=== PATIENT | female | born 1985 | race Caucasian/White ===

== ENCOUNTER 2016-09-09 16:26 | Inpatient (IN) ==
[2016-09-09 16:56] LABS: MANUAL DIFF NEEDED? NO
[2016-09-09 17:03] LABS: BASO% 0.3 % (0.0-0.8); EOS# 0.02 X1000 (0.0-0.7); EOS% 0.3 % (0.0-10.0); HEMATOCRIT 43.8 % (37.0-47.0); HEMOGLOBIN 14.9 g/dL (12.0-16.0); IMM GRAN# 0.02 X1000 (0.0-0.04); IMM GRAN% 0.3 % (0.0-0.5); LYMPH# 1.01 X1000 (1.2-3.4); LYMPH% 13.9 % (20.5-51.1); MCV 91.3 FL (81-99); MONO# 0.66 X1000 (0.11-0.59); MONO% 9.1 % (1.7-9.3); MPV 8.7 FL (7.4-10.4); NEUT% 76.1 % (42.2-75.2); PLT 373 X1000 (130-400)
[2016-09-09 17:14] LABS: AGAP 19; ALBUMIN 4.7 g/dL (3.5-5.0); ALKALINE PHOSPHATASE 73 U/L (32-104); BUN 14 mg/dL (8-22); CALCIUM 9.3 mg/dL (8.8-10.2); CHLORIDE 98 mmol/L (98-107); COSMO 271; GOT 27 U/L (10-30); GPT 20 U/L (10-36); SODIUM 136 mmol/L (136-145); TCO2 19 mmol/L (25-35); TOTAL PROTEIN 8.6 g/dL (6.3-8.3)
[2016-09-09 17:14] LABS: URINE MICRO REVIEW NEEDED? NO; URINE SOURCE CLEAN CATCH
[2016-09-09 17:17] LABS: BILIRUBIN URINE NEGATIVE (NEGATIVE); BLOOD URINE LARGE (NEGATIVE); COLOR YELLOW; GLUCOSE URINE NEGATIVE (NEGATIVE); LEUKOCYTES URINE LARGE (NEGATIVE); NITRITE URINE NEGATIVE (NEGATIVE); PH URINE 5.5; PROTEIN URINE 70 mg/dL (NEGATIVE); SP GRAVITY URINE 1.032; TURBIDITY URINE HAZY (CLEAR); UROBILINOGEN URINE 2 mg/dL (NORMAL)
[2016-09-09 17:19] LABS: UR EPITHELIAL CELLS <10 /HPF (<10); URINE BACTERIA 1+ /HPF; URINE CULTURE NEEDED? YES; URINE RBC TNTC /HPF (<10); URINE WBC TNTC /HPF (<10)
[2016-09-09] MEDS ORDERED: NS 1,000 ML IV ONE (18:40)
[2016-09-09] MEDS ORDERED: BENTYL IM ONE (18:41)
[2016-09-09] MEDS ORDERED: TORADOL IV ONE (18:52)
[2016-09-09] MEDS ORDERED: ZOFRAN IV ONE (18:52)
[2016-09-09 21:53] LABS: INR 0.97; PROTIME 10.2 Seconds (9.2-11.7); PTT 33.1 Seconds (22.0-36.0)
[2016-09-09] MEDS ORDERED: FLAGYL 500 MG/NS 500 MG/100 ML IVPB IV ONE (22:06)
--- NOTE | 2016-09-09 22:08 | PROVIDER DOCUMENTATION ---
This chart was entered by Aga Haynes Scribe, acting as scribe for Stefano Barr PA. HPI-Abdominal Pain/GI Problem - General Chief Complaint: Diarrhea Stated Complaint: DIARRHEA,VOMITING Time Seen by Provider: 09/09/16 17:58 Source: patient Allergies/Adverse Reactions: Patient Allergies Allergy/AdvReac Type Severity Reaction Status Date / Time No Known Allergies Allergy Verified 06/28/16 13:52 Home Medications: Home Medication List Medication Instructions Recorded Confirmed Last Taken Type Buspirone HCl 15 mg PO BID 09/09/16 09/09/16 09/09/16 History Escitalopram [Lexapro] 10 mg PO DAILY 09/09/16 09/09/16 09/09/16 History - History of Present Illness-ABD Nature of Presenting Problems: 30 year old F presents to the ED with a cc of ABD cramping and diarrhea with an onset of last night. PT states that her diarrhea is odd colored with a red tint. PT states that it is intermittent. Abdominal Pain Onset Location: reports: generalized abdomen Pain Radiation: reports: no radiation Quality of Pain: reports: cramping Severity in ED: reports: mild Timing: reports: intermittent Associated Symptoms: reports: diarrhea Rectal Bleeding: reports: blood mixed with stool # of Diarrhea Episodes: 6 Bruising or Bleeding Gums?: No Similar Symptoms Previously?: No Recently seen or treated by another doctor?: No Review of Systems - Adult - REVIEW OF SYSTEMS - ADULT Constitutional: denies: chills, fever Eyes: reports: no symptoms reported Ears, Nose, Mouth & Throat: reports: no symptoms reported Cardiovascular: reports: no symptoms reported Respiratory: reports: no symptoms reported Gastrointestinal: reports: abdominal pain, diarrhea. denies: nausea, vomiting Genitourinary: denies: dysuria, hematuria Musculoskeletal: denies: muscle aches, muscle weakness Integumentary: reports: no symptoms reported Neurological: reports: no symptoms reported Psychiatric: reports: no symptoms reported Endocrine: reports: no symptoms reported Hematologic/Lymphatic: reports: no symptoms reported Allergic/Immunologic: reports: no symptoms reported All Other Systems: Reviewed and Negative Past History - Adult - PAST MEDICAL HISTORY-ADULT Review of Records: reports: Nursing Assessment Review, Medications Reviewed Major Childhood Illnesses: reports: denies history Cardiovascular: reports: denies history Respiratory: reports: denies history Gastrointestinal: reports: denies history Obstetrical/Gynecological: reports: denies history Genitourinary: reports: denies history Musculoskeletal: reports: denies history Neurological: reports: denies history Psychiatric: reports: denies history Endocrine/Immune: reports: denies history Other Conditions: reports: denies history - PRIOR SURGERIES/PROCEDURES Surgical/Procedure History: reports: appendectomy - IMMUNIZATION STATUS Childhood Immunizations: See Nurse Assessment Flu Vaccine: See Nurse Assessment - FAMILY HISTORY Family History: reviewed, not pertinent - SOCIAL HISTORY Smoking: cigarettes Provider spent 3-5 mins advising pt. on dangers of tobacco.: Discussed manners to quit use, and f/u contacts for add'l counseling. Substance Use: none/never Alcohol Use Frequency: never Physical Exam-General - PHYSICAL EXAM-ADULT Initial Vital Signs Reviewed: Yes - CONSTITUTIONAL General Appearance: alert, mild distress - RESPIRATORY Respiratory: chest non-tender, lungs clear, normal breath sounds - CARDIOVASCULAR Cardiovascular: normal peripheral pulses, regular rate, rhythm, no edema - GASTROINTESTINAL (ABDOMEN) Abdominal Exam: normal bowel sounds, tenderness (generalized) - MUSCULOSKELETAL Back Exam: no CVA tenderness - SKIN Integumentary: diaphoresis - PSYCHIATRIC Psych/Mental Status: normal mood/affect, normal thought content, normal thought process, oriented x 3 Progress - PLAN OF CARE/RESULTS Progress/Plan/Lab Results: Vital Signs - 8 hr 09/09/16 16:32 Temperature 98.3 F Pulse Rate 107 H Respiratory Rate 16 Blood Pressure 112/69 O2 Sat by Pulse Oximetry 100 09/09/16 20:50 Stool Occult Blood (MIRZA) - Final Stool Laboratory Results - last 24 hr 09/09/16 09/09/16 09/09/16 16:45 16:45 16:58 WBC 7.28 RBC 4.80 Hgb 14.9 Hct 43.8 MCV 91.3 MCH 31.0 MCHC 34.0 RDW Std Deviation 13.8 Plt Count 373 MPV 8.7 Immature Gran % (Auto) 0.3 Neut % (Auto) 76.1 H Lymph % (Auto) 13.9 L [place] % (Auto) 9.1 Eos % (Auto) 0.3 Baso % (Auto) 0.3 Immature Gran # (Auto) 0.02 Neut # (Auto) 5.55 Lymph # (Auto) 1.01 L [place] # (Auto) 0.66 H Eos # (Auto) 0.02 Baso # (Auto) 0.02 Sodium 136 Potassium 4.0 Chloride 98 Carbon Dioxide 19 L Anion Gap 19 BUN 14 Creatinine 0.8 Estimated GFR/1.73 m2 > 60 BUN/Creatinine Ratio 18 Glucose 73 Calculated Osmolality 271 Calcium 9.3 Total Bilirubin 0.30 AST 27 ALT 20 Alkaline Phosphatase 73 Total Protein 8.6 H Albumin 4.7 Globulin 3.9 Albumin/Globulin Ratio 1.2 Urine Source CLEAN CATCH Urine Color YELLOW Urine Turbidity HAZY Urine pH 5.5 Ur Specific [place] 1.032 Urine Protein 70 A Ur Glucose (Stick) NEGATIVE Ur Ketones (Stick) 60 A Urine Blood LARGE A Urine Nitrite NEGATIVE Urine Bilirubin NEGATIVE Urobilinogen Dipstick 2 A Urine Leukocytes LARGE A Urine WBC (Auto) TNTC A Urine RBC (Auto) TNTC A U Epithel Cells (Auto) <10 Urine Bacteria (Auto) 1+ Orders Category Date Time Status Saline Loc NOW Care 09/09/16 18:40 Active ABDOMEN FLAT/UPRIGHT [RAD] Stat Exams 09/09/16 21:17 Ordered C DIFF ANTIGEN [STOOL] Stat Lab 09/09/16 20:50 Received C DIFF TOXIN [STOOL] Stat Lab 09/09/16 20:50 Received CBC WITH DIFF [HEME] Stat Lab 09/09/16 16:45 Completed COMPREHENSIVE METABOLIC PANEL [CHEM] Stat Lab 09/09/16 16:45 Completed OCCULT BLOOD SCREENING [STOOL] Stat Lab 09/09/16 20:50 Completed OVA AND PARASITE W/TRICHROME [STOOL] Stat Lab 09/09/16 20:50 Received TEST-URINE [PREG] Stat Lab 09/09/16 21:23 Ordered PROTIME WITH INR [COAG] Stat Lab 09/09/16 21:22 Ordered PTT [COAG] Stat Lab 09/09/16 21:22 Ordered STOOL CULTURE [RM] Routine Lab 09/09/16 20:50 Received TYPE & SCREEN [BBK] Stat Lab 09/09/16 21:22 Uncollected UA NIMS W/REFLEX CULT [URINALYSIS] Stat Lab 09/09/16 16:58 Completed URINE CULTURE [RM] Routine Lab 09/09/16 17:54 Received WBC STOOL [STOOL] Stat Lab 09/09/16 20:50 Received 0.9% Sodium Chloride Inj [Ns] 1,000 ml Med 09/09/16 18:40 Discontinued IV 999 mls/hr Dicyclomine [Bentyl] Med 09/09/16 18:41 Discontinued 20 mg IM NOW ONE Ketorolac [Toradol] Med 09/09/16 18:52 Discontinued 15 mg IV NOW ONE Ondansetron [Zofran] Med 09/09/16 18:52 Discontinued 4 mg IV NOW ONE Result Diagrams: 09/09/16 16:45 09/09/16 16:45 - CONSULTS/PCP/HOSPITALIST Notification #1 *Consult/PCP/Hospitalist*: Dr. Kan(hospitalist) Time Discussed: 22:07 Reason/Comments: Requested CT scan Consult Disposition: Admit Departure - Departure Time of Disposition Decision: 22:07 DIAGNOSIS: GI bleeding Qualifiers: GI bleed type/associated pathology: unspecified gastrointestinal hemorrhage type Qualified Code(s): K92.2 - Gastrointestinal hemorrhage, unspecified UTI (urinary tract infection) Qualifiers: Urinary tract infection type: site unspecified Hematuria presence: without hematuria Qualified Code(s): N39.0 - Urinary tract infection, site not specified Disposition: ADMITTED INPATIENT 09 Certified Medical Emergency: Emergent Condition: Stable Referrals and Follow-Ups: Jones Marsh Jr, MD [Primary Care Provider] - Attestation - Physician/ RAJ Attestation Patient care was provided by Advanced Practice Provider:: Yes Advanced Practice Provider:: Stefano Barr Advanced Practice Provider documentation review:: The Mid-level provider documentation, treatment plan and medical decision making was reviewed by the physician who agrees with all treatment and medical decision making by the MLP. This chart was documented by the indicated scribe, (Aga Haynes Scribe) and accurately reflects the services I performed and decisions made by Momo sun Steven Wesley, PA, as attested by the provider's signature.
[2016-09-09] MEDS ORDERED: ZOFRAN IV PRN (23:26)
[2016-09-09] MEDS ORDERED: SODIUM CHLORIDE 0.9% INJ ONE (23:26)
[2016-09-09] MEDS ORDERED: PROTONIX IV STA (23:26)
[2016-09-09] MEDS: NS 1,000 ML IV SCH (23:40)
[2016-09-09] MEDS: LEVAQUIN 750 MG/D5W 750 MG/150 ML IVPB IV SCH (23:45)
--- NOTE | 2016-09-09 23:48 | HISTORY AND PHYSICAL ---
REASON FOR ADMISSION: A 2-day history of hematochezia. HISTORY OF PRESENT ILLNESS: Ms Anderson is a 38-year-old lady with past medical history of anxiety disorder, asthma, seasonal allergic rhinitis. She says for the last 24 to 36 hours she has been having increasing and frequent bloody diarrhea. She estimates she has had about greater than 10 episodes. She also has tenesmus associated with this. As of the early hours of this morning, she had low-grade subjective fever and chills, but denies any abdominal complaints. No genitourinary complaints. No nausea or vomiting. No cardiorespiratory complaints. She came in today because her symptoms, i.e., hematochezia kept getting worse. No mucoid stools. No recent antibiotic use, but she states that she just finished a course of Mobic. She said her son a few years ago had some diarrhea, which has since stopped yesterday. No travel. No ingestion of raw or partially cooked foods or canned foods. No history in her family of her GI symptoms. She also complains of some postural lightheadedness, and shortness of breath, which also prompted her to seek care. REVIEW OF SYSTEMS: Twelve system review is negative. Positive findings per HPI. ALLERGIES: None. MEDICATIONS: She is on BuSpar 15 mg b.i.d., Lexapro 10 mg daily. FAMILY HISTORY: Notable for type 2 diabetes. No cancer or heart disease or colon problems in first-degree relatives. PAST SURGICAL HISTORY: Notable for appendectomy and oophorectomy. SOCIAL HISTORY: Smokes half a pack a day. Lives with her spouse. No alcohol or drug use. LAB WORK: CT scan at the time of dictation, regarding report, is still pending. White count 7,000, hemoglobin and hematocrit 14 and 43, platelets 373,000. Chemistries entirely normal, and includes LFTs. Urinalysis shows too numerous to count RBCs and white cells, 60 ketones and 1+ bacteria. is normal. PHYSICAL EXAMINATION: VITAL SIGNS: Heart rate 107, temp is 98.3, respirations 16, blood pressure is 112/69, 100% room air. After IV fluid resuscitation 1 L, heart rate came down to 75. GENERAL: She is a young, slightly anxious, woman, who is not in acute distress. She is A and O x3 with normal mood and affect. HEENT: Head is normocephalic, atraumatic. Eyes: REBECCA. EOMI. She is anicteric and not pale. ENT and oropharynx exam is grossly normal. No central cyanosis. NECK: Supple. No JVD or carotid bruit. No thyromegaly. CHEST: Clear to auscultation with good air entry in both lung muhammad. CARDIOVASCULAR: First and second heart sounds are heard. No gallops, murmurs, rubs. Rhythm is regular. ABDOMEN: Slightly protuberant, soft, with mild periumbilical tenderness. No rebound or guarding. No mass or organomegaly. Bowel sounds are normal. RECTAL: Deferred at this time. EXTREMITIES: Neurovascularly intact. No edema, or peripheral cyanosis noted. NEUROLOGICAL: No focal deficits. SKIN: Intact with no breakdown or lesions. LYMPH NODE: Grossly normal. ASSESSMENT: 1. GI bleed, probably colitis. Cannot rule out intestinal ulceration from NSAID use. We will hydrate the patient. Check hemoglobin and hematocrit, transfuse if needed. Consult GI to see patient. Start patient also on empiric IV Protonix,although, I don't believe this is upper GI. I seems more like a lower GI problem. Other differential could include ischemic colitis, but she does not have any risk factors for this. 2. Asthma, stable. 3. Seasonal allergic rhinitis, stable. PLAN: 1. Still await CT scan for final decision. 2. In the interim, we will treat patient empirically with antibiotics, as this probably has the makings of colitis. Stool studies are pending at this time, and once the results come, we will modify treatment accordingly. cc: Yohannes Kan MD [facility]
[2016-09-10] MEDS: FLAGYL 250 MG/NS 250 MG/50 ML IVPB IV SCH ×4 (05:21→20:38)
[2016-09-10] MEDS: NS 1,000 ML IV SCH ×3 (05:22→20:37)
[2016-09-10] MEDS: TYLENOL PO PRN (05:33)
[2016-09-10 06:22] LABS: AGAP 11; BUN 13 mg/dL (8-22); CHLORIDE 104 mmol/L (98-107); COSMO 267; POTASSIUM 3.8 mmol/L (3.5-5.1); SODIUM 134 mmol/L (136-145); TCO2 19 mmol/L (25-35)
[2016-09-10 06:40] LABS: HEMOGLOBIN 11.7 g/dL (12.0-16.0)
[2016-09-10] MEDS: BUSPAR PO SCH ×2 (08:40→20:39)
[2016-09-10] MEDS: LEXAPRO PO SCH (08:41)
--- NOTE | 2016-09-10 09:17 | Diag Imaging Result Document ---
PROCEDURE NAME: CT ABD/PELVIS W/ IV CONT ONLY - 09/09/2016 CT ABDOMEN AND PELVIS WITH IV CONTRAST ONLY: Exam performed with intravenous contrast only per request of the referring provider. A dose-reduction protocol was used. COMPARISON: No comparison exam. FINDINGS: The visualized lung bases appear clear except for mild dependent atelectasis. There are tiny low-density lesions in the inferior liver and spleen which likely represent cysts. There are no other substantial abnormalities of the liver, spleen, adrenal glands, or pancreas identified. There are no calcified gallstones seen. The right kidney is abnormally rotated which likely relates to congenital anomaly. The bilateral kidneys enhance homogeneously. There is no hydronephrosis. There are no substantially enlarged lymph nodes identified. There is retained fluid in distal small bowel. There are a couple of borderline distended distal small bowel loops. There is apparent mild wall thickening along distal small bowel. These findings suggest distal enteritis. There is a small amount of fluid in the colon and rectum which may relate to the distal enteritis and/or diarrheal illness. There is no substantial colon wall thickening identified. The appendix by history is surgically absent. There is no abscess identified. There is no free air. There is no substantial free fluid identified. Images of the pelvis, otherwise, show a 1.7 cm right ovarian cyst with mildly thickened ha. IMPRESSION: 1. Apparent distal enteritis. No abscess. No free air. 2. 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 No renal mass. No hydronephrosis. 3. 1.7 cm right ovarian cyst with mildly thickened ha. No free fluid. A [facility] [employer] physician provided preliminary results at 10:42 p.m. on 09/09/2016. MTDD
--- NOTE | 2016-09-10 09:26 | Diag Imaging Result Document ---
PROCEDURE NAME: ABDOMEN FLAT/UPRIGHT - 09/09/2016 FLAT AND UPRIGHT ABDOMEN TWO VIEWS: FINDINGS: No free air beneath the diaphragm. No bowel obstruction. No organomegaly. No abnormal abdominal or pelvic calcifications. IMPRESSION: Negative exam.
--- NOTE | 2016-09-10 09:46 | PROGRESS NOTE ---
DATE: 09/10/2016 SUBJECTIVE: The patient says she is feeling better now. Has not had as much diarrhea. She is on her menstrual flow. Started having diarrhea 2 days ago and it was worse yesterday so she came to the emergency room. There was noted to be hematochezia by the emergency room physician. OBJECTIVE: Vital signs: Blood pressure 105/56, respirations 16, pulse 81, temperature 97.9 degrees Fahrenheit. HEENT: She is normocephalic. EOMs intact. PERRLA. Throat clear. Lungs: Clear to auscultation and percussion without rhonchi, rales, or wheezes. Heart: Regular rate and rhythm without murmurs, gallops, or friction rubs. Abdomen: Soft with some tenderness in the midline, low. She says she is not having any dysuria. It appears that she has a urinary tract infection with too numerous to count WBCs and RBCs and he is on a clean-catch specimen. She has also been on her menstrual flow and she has had diarrhea. LABORATORY: Sodium is 134, potassium 3.8, BUN 13, creatinine 0.8. C-reactive protein is high at 37.58. Her hemoglobin has dropped from 14.9 to 11.7 and hematocrit 43.8 to 35. ASSESSMENT: 1. Abdominal pain. 2. Hematochezia. 3. Diarrhea. 4. Rule out colitis. 5. Possible urinary tract infection. PLAN: Awaiting cultures. Awaiting CT scan of the abdomen results. She has been given 1 dose of Flagyl and has been started on Levaquin. Consultation has been made with GI. cc: Jones Marsh Jr, MD
[2016-09-10 11:03] LABS: URINE CULTURE NEEDED? NO; URINE MICRO REVIEW NEEDED? NO; URINE SOURCE CATH
[2016-09-10 11:20] LABS: BILIRUBIN URINE NEGATIVE (NEGATIVE); BLOOD URINE MODERATE (NEGATIVE); COLOR YELLOW; GLUCOSE URINE NEGATIVE (NEGATIVE); LEUKOCYTES URINE NEGATIVE (NEGATIVE); NITRITE URINE NEGATIVE (NEGATIVE); PROTEIN URINE NEGATIVE (NEGATIVE); SP GRAVITY URINE 1.042; TURBIDITY URINE CLEAR (CLEAR); UROBILINOGEN URINE NORMAL (NORMAL)
[2016-09-10 11:24] LABS: UR EPITHELIAL CELLS <10 /HPF (<10); URINE BACTERIA NEGATIVE /HPF; URINE RBC <10 /HPF (<10); URINE WBC <10 /HPF (<10)
[2016-09-10] MEDS ORDERED: GOLYTELY PO ONE (14:00)
[2016-09-10] MEDS: NICODERM PATCH TD SCH (15:01)
[2016-09-10 15:22] LABS: HEMATOCRIT 34.7 % (37.0-47.0); HEMOGLOBIN 11.8 g/dL (12.0-16.0)
[2016-09-10] MEDS: BENTYL PO SCH (18:37)
--- NOTE | 2016-09-10 19:44 | CONSULTATION ---
DATE OF CONSULTATION: 09/10/2016 REASON FOR REFERRAL: Diarrhea and rectal bleeding. HISTORY OF PRESENT ILLNESS: This is a 38-year-old female who reports onset of 1-2 days of bloody diarrhea. She denies mucus in the stool. She estimates over 10 loose stools yesterday. She has so far had 3-4 today. She reports abdominal pain and cramping. She also reports being on her menstrual cycle. She has had no recent antibiotic use. She has a young son that has had issues with diarrhea and fever recently. He is [id number]. She does report having recent problems with back pain, sciatic nerve problem and has been undergoing physical therapy and has also taken Mobic for her back. No reported nausea or vomiting. No hematemesis. She has had incontinence of stool. PAST MEDICAL HISTORY: Asthma. Anxiety disorder. PAST SURGICAL HISTORY: Appendectomy. Right oophorectomy. She has had 4 vaginal. ALLERGIES: No known drug allergies. HOME MEDICATION: Lexapro 10 mg daily. Buspirone 15 mg twice a day. SOCIAL HISTORY: Positive for tobacco use, about 5 cigarettes a day. Denies alcohol use. She is single. She has 4 children. She works in [employer], but has recently been off work due to back problems. FAMILY HISTORY: Diabetes. No reported cancer or colon problems in her family. REVIEW OF SYSTEMS: Per HPI. PHYSICAL EXAMINATION: Vital Signs: Temperature 98 degrees, pulse 71, respirations 16, blood pressure 130/62. General: Patient is awake, alert, no acute distress. HEENT: Normocephalic, atraumatic. Pupils equal, round, reactive to light. Sclerae nonicteric. Cardiovascular: Regular rate and rhythm. Respiratory: Lung sounds essentially clear bilaterally. Abdomen: Soft. Positive bowel sounds. Diffuse tenderness with palpation. Extremities: No lower extremity edema noted. +2 pedal pulses bilaterally. DIAGNOSTIC RESULTS/LABORATORY: Microbiology: Clostridium difficile toxin and antigen are negative. WBCs: None seen. Urine culture: No growth. Stool culture: No enteric pathogens noted. Ova and parasites are pending. Stool occult blood was positive. Hematology: White count 7.28, hemoglobin 11.7, hematocrit 35, MCV 91.3, platelet 373,000. Coagulation, ProTime 10.2, INR 0.97, PTT 33.1. Chemistry: Sodium 134, potassium 3.8, chloride 104, CO2 19, BUN 13, creatinine 0.8, glucose 83, calcium 8, total bilirubin 0.30, AST 27, ALT 20, alkaline phosphatase 73, C- reactive protein, 37.58, total protein 8.6. ASSESSMENT AND PLAN: 1. Diarrhea. 2. Rectal bleeding. 3. Mild anemia. PLAN: Continue supportive care. Continue symptomatic treatment. Continue antibiotics as already ordered. We will proceed with a colonoscopy tomorrow. Her CT scan showed apparent distal enteritis. We will continue to follow and further plans to be made according to findings. I have discussed the colonoscopy procedure with the patient, along with benefits and risks of the procedure. She wishes to proceed. I have discussed this case with Dr. Gray. Thank you for this consult. Dictated by MICHAEL Quintanilla for Kevyn Gray MD cc: MICHAEL Holland MD Roger H. Moss Jr, MD
[2016-09-10 22:16] LABS: HEMATOCRIT 35.4 % (37.0-47.0)
[2016-09-11] MEDS: FLAGYL 250 MG/NS 250 MG/50 ML IVPB IV SCH ×2 (00:59→05:11)
[2016-09-11] MEDS: LEVAQUIN 750 MG/D5W 750 MG/150 ML IVPB IV SCH (01:18)
[2016-09-11] MEDS: NS 1,000 ML IV SCH ×2 (05:12→10:02)
[2016-09-11] MEDS: BENTYL PO SCH ×3 (06:30→16:45)
[2016-09-11 07:03] LABS: HEMATOCRIT 35.1 % (37.0-47.0); HEMOGLOBIN 11.8 g/dL (12.0-16.0)
[2016-09-11 07:24] LABS: AGAP 15; BUN 4 mg/dL (8-22); CALCIUM 8.4 mg/dL (8.8-10.2); CHLORIDE 106 mmol/L (98-107); COSMO 279; POTASSIUM 4.1 mmol/L (3.5-5.1); SODIUM 142 mmol/L (136-145); TCO2 21 mmol/L (25-35)
[2016-09-11] MEDS ORDERED: DIPRIVAN 1% ONE (09:51)
[2016-09-11] MEDS: BUSPAR PO SCH ×2 (10:01→21:26)
[2016-09-11] MEDS: LEXAPRO PO SCH (10:02)
[2016-09-11] MEDS: NICODERM PATCH TD SCH (10:02)
[2016-09-11] MEDS ORDERED: ANESTHESIA PB SET 88 IN 5742 ONE (10:06)
[2016-09-11] MEDS ORDERED: XYLOCAINE-MPF 2% ONE (10:06)
[2016-09-11] MEDS ORDERED: LR 1,000 ML ONE (10:06)
--- NOTE | 2016-09-11 12:29 | PROGRESS NOTE ---
DATE: 09/11/2016 SUBJECTIVE: Patient says she still has a little abdominal pain. She is about to go for endoscopy. Her urine culture showed no growth. We did a catheterized urine specimen which did show a little blood but no pus, and otherwise was clear. I wonder if the initial clean-catch specimen was contaminated as she had been having diarrhea and she is on her menstrual flow. OBJECTIVE: Vital Signs: Blood pressure is 103/61, respirations 18, pulse 81, temperature 97.7 degrees Fahrenheit. HEENT: She is normocephalic. Intact PERRLA. Throat clear. Lungs: Clear to auscultation and percussion without rhonchi, rales, or wheezes. Heart: Regular rate and rhythm without murmurs, gallops, or friction rubs. Abdomen: Soft. Active bowel sounds with a little tenderness in the midline down low just above the suprapubic area. Neurological examination: Cranial nerves 2-12 intact grossly. Sensory and motor intact. Reflexes 1+ all. Her CT scan showed small enteritis but no colitis. White count on admission was 7280 with a hemoglobin 14.9, her hemoglobin is 11.8 this morning. LABORATORY: Chemistry profile is essentially normal. She went from WBCs too numerous to count is less than 10 on a catheterized specimen. So either she responded to the antibiotics very quickly or she did not really have an infection and it was contamination. Her culture showed no growth. ASSESSMENT: 1. Abdominal pain. 2. Hematochezia. 3. Diarrhea. 4. Pyuria. PLAN: Endoscopy today and then make decisions after that. cc: oJnes Marsh Jr, MD
--- NOTE | 2016-09-11 15:04 | OPERATIVE NOTE ---
PROCEDURE DATE: 09/11/2016 PROCEDURE: Colonoscopy. PREOPERATIVE DIAGNOSIS: 1. Abdominal pain. 2. Diarrhea. 3. Possible enteritis. POSTOPERATIVE DIAGNOSIS: Normal colon up to terminal ileum. HISTORY: This is a 30-year-old, white female admitted to hospital with abdominal pain and diarrhea. She had imaging studies suggestive of possible terminal enteritis. Endoscopy was done to check for IBD. DESCRIPTION OF PROCEDURE: Informed consent obtained from the patient. The procedure, risks, benefits, alternatives were explained in layman's terms. She understood. All the pertinent questions were answered. Patient was brought to the endoscopy unit and was premedicated as per Anesthesia. After adequate sedation, while she was lying in left lateral position, digital rectal exam was performed, which was normal. The scope was then gently introduced into the rectum and advanced under direct vision through the parts of colon, all the way up to the cecum. The cecum was identified by ileocecal valve and appendiceal orifice. Scope was then passed through the normal ileocecal valve into terminal ileum. About 10-15 cm of terminal ileum was examined, did not reveal any evidence enteritis or ulcers or tumors in the small bowel. The scope was withdrawn back into the cecum, back through the parts of colon, all the way up the rectum, paying attention to details. Preparation was good. The visualized portion of the colon revealed no polyps, tumors, cancers, or inflammation or ulcers. Rectum was examined both in straight and retroflexed view, which revealed no pathology either. The scope was then removed. Patient tolerated procedure well. No complications noted. Patient was then transferred to the recovery area in a stable condition. IMPRESSION: Abdominal pain, diarrhea with normal colon up to terminal ileum. RECOMMENDATION: I would continue her on current treatment, symptomatic treatment. Start her on full liquid diet and advance as tolerated. Since I did not see any evidence of any infectious pathology in the small bowel or the colon, I will stop the antibiotic and follow up with me in the office after discharge. cc: MD Jones Santos Jr, MD
[2016-09-12] MEDS: NS 1,000 ML IV SCH ×5 (00:26→16:24)
[2016-09-12] MEDS: BENTYL PO SCH ×3 (06:13→16:23)
[2016-09-12 07:46] LABS: AGAP 13; BUN 8 mg/dL (8-22); CHLORIDE 108 mmol/L (98-107); COSMO 279; SODIUM 141 mmol/L (136-145); TCO2 20 mmol/L (25-35)
[2016-09-12] MEDS: LEXAPRO PO SCH (09:45)
[2016-09-12] MEDS: NICODERM PATCH TD SCH (09:45)
[2016-09-12] MEDS: BUSPAR PO SCH ×2 (09:45→20:23)
--- NOTE | 2016-09-12 09:57 | PROGRESS NOTE ---
DATE: 09/12/2016 SUBJECTIVE: The patient is still having diarrhea, says she cannot eat much. She has had a little bit of nausea. OBJECTIVE: Vital signs: Blood pressure 116/69. Respirations 20. Pulse 53. Temperature 98.6 degrees Fahrenheit. HEENT: She is normocephalic. EOMs intact. PERRLA. Throat clear. Lungs: Clear to auscultation and percussion without rhonchi, rales, or wheezes. Heart: Regular rate and rhythm without murmurs, gallops, or friction rubs. Abdomen: Soft with some slightly hyperactive bowel sounds and generalized tenderness. Colonoscopy shows the colon to be normal. CT scan showed terminal ileitis. CT scan of the abdomen and pelvis showed nothing but the terminal ileitis and a malrotated right kidney that is most likely congenital. She also had a 1.7 cm right ovarian cyst. She says she just started her period a day or two ago. RECOMMENDATIONS: Recommendation from Gastroenterology was to continue IV fluid hydration and to treat symptomatically. She has been placed on some Bentyl. He said to advance the diet as tolerated. Right now she has no appetite and she is still having diarrhea. She had diarrhea 4 times last night. I think we will just continue to watch and give IV fluids and see how she improves. When she feels a little bit better, we will start her on an advanced diet. ASSESSMENT: 1. Terminal ileitis/gastroenteritis. 2. Question about urinary tract infection. I am not sure whether the clean catch specimen was contaminated or not. Urine culture had no growth. I repeated a urinalysis with a catheterized specimen and it showed just a little bit of blood but otherwise was normal. That may have been traumatic, showing the blood. PLAN: Will continue to support as above. cc: Jones Marsh Jr, MD
--- NOTE | 2016-09-12 15:05 | PROGRESS NOTE ---
DATE: 09/12/2016 SUBJECTIVE: Patient is feeling a little better. She was able to eat lunch today. She has had, so far, 4 loose stools today. She said they are starting to thicken up a little bit. She denies any visible blood in the stool. OBJECTIVE: Vital Signs: Temperature 98.6 degrees, pulse 53, respirations 20, blood pressure 116/69. Generally: Patient is awake and alert, in no acute distress. Respiratory: Lung sounds are clear bilaterally. Abdomen: Soft, mildly tender. Positive bowel sounds. LABORATORY RESULTS: Hematology: White count 7.28, hemoglobin 11.8, hematocrit 35.1, MCV 91.3. Chemistry: Sodium 141, potassium 4.0, chloride 108, CO2 of 20, BUN 8, creatinine 0.6. DIAGNOSTIC STUDIES: Colonoscopy on 09/11/2016 was normal up to the terminal ileum. She had a CT on 09/09/2016 that showed apparent distal enteritis. ASSESSMENT: 1. Diarrhea. 2. Abdominal pain, improving. 3. Gastroenteritis/ileitis. PLAN: Continue supportive care. We will continue to follow. Continue symptomatic treatment. Further plans will be made according to her progress. Dictated by MICHAEL Quintanilla for Kevyn Gray MD cc: MICHAEL Holland MD Roger H. Moss Jr, MD
[2016-09-12] MEDS: QUESTRAN PO SCH (20:24)
[2016-09-13] MEDS: NS 1,000 ML IV SCH ×5 (01:30→21:22)
[2016-09-13] MEDS: BENTYL PO SCH ×3 (07:10→16:09)
[2016-09-13 07:19] LABS: AGAP 10; BUN 8 mg/dL (8-22); CALCIUM 8.4 mg/dL (8.8-10.2); CHLORIDE 107 mmol/L (98-107); COSMO 279; SODIUM 141 mmol/L (136-145); TCO2 24 mmol/L (25-35)
[2016-09-13 07:28] LABS: FREE T4 0.92 ng/dL (0.93-1.70)
[2016-09-13] MEDS: QUESTRAN PO SCH ×2 (08:18→21:15)
[2016-09-13] MEDS: NICODERM PATCH TD SCH (08:18)
[2016-09-13] MEDS: LEXAPRO PO SCH (08:18)
[2016-09-13] MEDS: BUSPAR PO SCH ×2 (08:18→21:15)
--- NOTE | 2016-09-13 10:35 | PROGRESS NOTE ---
DATE: 09/13/2016 SUBJECTIVE: The patient said she had diarrhea again this morning. She just does not feel real well but says she may feel a little bit better than she did yesterday. OBJECTIVE: Vital signs: Blood pressure 109/61, respirations 20, pulse 54 and regular, temperature 98.2 degrees Fahrenheit. HEENT: She is normocephalic, EOMs intact. PERRLA. Throat clear. Lungs: Lungs are now clear to auscultation and percussion without rhonchi, rales, or wheezes. Heart: Regular rate and rhythm without murmurs, gallops, or friction rubs. Abdomen: Soft with active bowel sounds, no organomegaly or tenderness at this time. Diet has been advanced. Neurological: Cranial nerves 2-12 intact grossly. Sensory and motor intact. Reflexes 1+ all. ASSESSMENT: 1. Rectal bleeding, now resolved. 2. Diarrhea with enteritis of terminal ileum. PLAN: Continue support. cc: Jones Marsh Jr, MD
--- NOTE | 2016-09-13 15:20 | PROGRESS NOTE ---
DATE: 09/13/2016 SUBJECTIVE: The patient is resting comfortably, sitting up on the bedside. She complains of 2 loose bowel movements today. That number has improved since yesterday. She has not had any abdominal pain or abdominal cramp. She is tolerating Questran. She is also taking Bentyl. OBJECTIVE: Vital Signs: Temperature is 98.7 degrees, pulse is 56 per minute and regular, breathing of 19. Blood pressure 112/73. Abdomen is full, soft. Bowel sounds are audible. No pedal edema noted. LABORATORY DATA: Reviewed. Sodium 141, potassium 4.0, chloride 107, bicarb 24. BUN is 8. Creatinine 0.7. TSH was 3.33 and T4 was 0.92. Her stool studies show no WBCs and the culture did not grow any enteric back areas. The Clostridium difficile toxins were negative. Loose bowel movement. At this point, etiology is not known. Colonoscopy all the way up to the terminal ileum was negative for any evidence of enteritis or colitis. I would continue her symptomatic treatment and may need workup to check for celiac disease and/or IBSD. I have explained the findings to the patient. The patient understands. All pertinent questions answered. cc: MD Jones Santos Jr, MD
[2016-09-14] MEDS: NS 1,000 ML IV SCH ×2 (06:07→09:31)
[2016-09-14] MEDS: BENTYL PO SCH ×2 (06:07→10:50)
[2016-09-14 07:40] LABS: BASO% 0.3 % (0.0-0.8); EOS# 0.14 X1000 (0.0-0.7); EOS% 2.4 % (0.0-10.0); HEMATOCRIT 34.1 % (37.0-47.0); HEMOGLOBIN 11.5 g/dL (12.0-16.0); IMM GRAN# 0.02 X1000 (0.0-0.04); IMM GRAN% 0.3 % (0.0-0.5); LYMPH# 2.62 X1000 (1.2-3.4); LYMPH% 45.3 % (20.5-51.1); MANUAL DIFF NEEDED? YES; MCH 30.8 PG (27-31); MCHC 33.7 g/dL (33-37); MCV 91.4 FL (81-99); MONO# 0.39 X1000 (0.11-0.59); MONO% 6.7 % (1.7-9.3); MPV 8.9 FL (7.4-10.4); PLT 284 X1000 (130-400); RBC 3.73 XMIL (4.2-5.4)
[2016-09-14 07:49] LABS: AGAP 10; BUN 9 mg/dL (8-22); CALCIUM 8.3 mg/dL (8.8-10.2); CHLORIDE 108 mmol/L (98-107); COSMO 277; SODIUM 140 mmol/L (136-145); TCO2 22 mmol/L (25-35)
[2016-09-14 08:14] VITALS: BP 92/42
[2016-09-14 08:17] LABS: BANDS 6 % (0-1); LYMPHS 42 % (21-51); MONO 8 % (1-9)
[2016-09-14] MEDS: NICODERM PATCH TD SCH (09:31)
[2016-09-14] MEDS: LEXAPRO PO SCH (09:31)
[2016-09-14] MEDS: BUSPAR PO SCH (09:31)
[2016-09-14] MEDS: QUESTRAN PO SCH (09:31)
[2016-09-14] MEDS: TYLENOL PO PRN (12:05)
--- NOTE | 2016-09-14 12:36 | PROGRESS NOTE ---
DATE: 09/14/2016 Patient is sitting up, enjoying her lunch now. She is about to be discharged. Advised her to follow up with me in the office after discharge. cc: MD Jones Santos Jr, MD
--- NOTE | 2016-09-15 04:46 | DISCHARGE SUMMARY ---
ADMISSION DATE: 09/09/2016 DISCHARGE DATE: 09/14/2016 FINAL DIAGNOSES: 1. Hematochezia. 2. Enteritis. 3. Diarrhea. SECONDARY DIAGNOSIS: Depression and anxiety, for which she is already treated. DISCHARGE MEDICATIONS: Will include her BuSpar 15 mg p.o. b.i.d., Lexapro 10 mg daily, Questran 4 g p.o. b.i.d., and Bentyl 2 mg p.o. t.i.d. PRESENT ILLNESS: The patient is a 30-year-old female with a 2-day history of hematochezia and came in the emergency room. Hemoglobin remained stable. CT scan of the abdomen showed enteritis in the terminal ileum. Colonoscopy done by Dr. Gray showed everything was clear. No signs of bleeding. She has had no more bleeding. I could not see anything that looked infectious. Initially she was placed on antibiotics, but those were stopped. PHYSICAL EXAMINATION ON DISCHARGE: HEENT: She is normocephalic. Extraocular movements intact. Pupils equal, round, and reactive to light and accommodation. Throat clear. Lungs: Clear to auscultation and percussion without rhonchi, rales, or wheezes. Heart: Regular rate rhythm without murmurs, gallops, or friction rubs. Abdomen: Soft. Active bowel sounds. No organomegaly or tenderness. She had some lower midline tenderness when she first came in. That has resolved. She has had 1 good bowel movement this morning with no diarrhea. Neurological Examination: Intact grossly. Vital Signs: Show blood pressure 92/42, respirations 16, pulse 51, temperature 97.8 degrees Fahrenheit. I will discharge home with the above medications and see back in the office next week. She will need to see Dr. Gray again and we will schedule this for her. She may need a workup for her other conditions causing the neuritis. cc: Jones Marsh Jr, MD
== END 2016-09-14 13:20 | disposition home or self-care (01) ==
LOC: ED 16:26 → EDIPHOLD 16:27 → SUATTDRO 16:27 → 3N 09-10 16:44
PROVIDERS: ADMIT Emergency Medicine; ATTEND Emergency Medicine